=== PATIENT | female | born 1985 | race Caucasian/White ===

== ENCOUNTER 2017-02-12 18:10 | Emergency (ER) | payer MEDICAID, OTHER ==
[2017-02-12 18:32] VITALS: O2SAT 100
[2017-02-12] MEDS ORDERED: Tmp-Smz 800 mg-160 mg DS Tab PO STA (20:13)
[2017-02-12] MEDS ORDERED: Tmp-Smz 800 mg-160 mg DS Tab ONE (20:16)
--- NOTE | 2017-02-12 20:17 | C.PDOC ---
History Of Present Illness Patient is a 31 year old female who presents to the ER with a complaint of bilateral open wounds to her feet for the past 4 days. Patient states she has draining to her left heel wound. Denies any fever, weakness or numbness. Time Seen by Provider: 02/12/17 19:22 Chief Complaint (Nursing): Abnormal Skin Integrity History Per: Patient History/Exam Limitations: no limitations Onset/Duration Of Symptoms: Days (4) Current Symptoms Are (Timing): Still Present Location Of Injury: Right: Foot (open wound), Left: Foot Quality Of Symptoms: Draining (Left heel) Past Medical History Reviewed: Historical Data, Nursing Documentation, Vital Signs Vital Signs: Last Vital Signs Temp 98.5 F 02/12/17 20:35 Pulse 94 H 02/12/17 20:35 Resp 16 02/12/17 20:35 BP 112/80 02/12/17 20:35 Pulse Ox 100 02/13/17 05:24 - [facility] Procedures ASPIRAT CURET-POST DELIV (11/08/13) MONITORING NOS (12/25/14) MANUAL ASSIST DELIV NEC (12/25/14) Family History: States: Unknown Family Hx - Social History Hx Tobacco Use: No Hx Alcohol Use: No Hx Substance Use: No - Immunization History Hx Tetanus Toxoid Vaccination: No Hx Influenza Vaccination: Yes Hx Pneumococcal Vaccination: No Review Of Systems Except As Marked, All Systems Reviewed And Found Negative. Constitutional: Negative for: Fever, Chills Musculoskeletal: Positive for: Foot Pain (Bilateral open wounds) Neurological: Negative for: Weakness, Numbness Physical Exam - Physical Exam Appears: Well, Non-toxic Skin: Normal Color, Warm, Dry Head: Normacephalic Eye(s): bilateral: Normal Inspection, PERRL Oral Mucosa: Moist Extremity: Normal ROM, No Deformity, No Swelling, Other (dry open erythematous wound, non draining, non fluctuantto left heel and right foot dorsal aspect.) Extremity: Bilateral: Normal Color And Temperature, Normal ROM Pulses: Left Dorsalis Pedis: Normal, Right Dorsalis Pedis: Normal Neurological/Psych: Oriented x3, Normal Speech, Normal Motor, Normal Sensation ED Course And Treatment O2 Sat by Pulse Oximetry: 100 (Room air) Pulse Ox Interpretation: Normal Progress Note: Keflex PO and bactrim PO administered. Advised wound check in 2 days in clinic Disposition Counseled Patient/Family Regarding: Diagnosis, Need For Followup, Rx Given - Disposition Referrals: [facility] [Outside] Disposition: HOME/ ROUTINE Disposition Time: 20:14 Condition: STABLE Additional Instructions: Please follow up in clinic Keep wound clean Apply bacitracin oint Return to ER if worse Prescriptions: Sulfamethoxazole/Trimethoprim [Bactrim DS 800 mg-160 mg] 1 tab PO BID #14 tab Mupirocin 2% Ointment [Bactroban Ointment] 1 appl TP BID #1 tube Cephalexin [cephalexin] 500 mg PO QID #28 cap Instructions: Wound Infection (ED) Print Language: ECUADOREAN - Clinical Impression Clinical Impression: Infected open wound - Scribe Statement The provider has reviewed the documentation as recorded by the Scribernie Macias All medical record entries made by the Stefaniaibernie were at my direction and personally dictated by me. I have reviewed the chart and agree that the record accurately reflects my personal performance of the history, physical exam, medical decision making, and the department course for this patient. I have also personally directed, reviewed, and agree with the discharge instructions and disposition.
[2017-02-12 20:36] VITALS: BP 112/80; PULSE 94; RESP 16; TEMP 98.5
== END 2017-02-12 20:36 | disposition home or self-care (01) ==
LOC: C.ER 18:10
DX: S91.302A Unspecified open wound, left foot, initial encounter (principal); S91.301A Unspecified open wound, right foot, initial encounter; L08.9 Local infection of the skin and subcutaneous tissue, unspecified; X58.XXXA Exposure to other specified factors, initial encounter

== ENCOUNTER 2017-12-05 07:59 | Emergency (ER) | payer MEDICAID ==
[2017-12-05 08:06] VITALS: O2SAT 100
[2017-12-05 08:57] LABS: BASO % 0.5 % (0.0-2.0); EOS # 0.1 K/uL (0.0-0.7); EOS % 0.7 % (0.0-4.0); HEMOGLOBIN 12.8 g/dL (11.0-16.0); LYMPH # 2.2 K/uL (1.0-4.3); LYMPH % 27.1 % (20.0-40.0); MEAN CORPUSCULAR HEMOGLOBIN 29.8 pg (27.0-31.0); MEAN CORPUSCULAR HGB CONC 34.9 g/dL (33.0-37.0); MEAN PLATELET VOLUME 8.1 fL (7.2-11.7); MONO # 0.4 K/uL (0.0-0.8); MONO % 5.1 % (0.0-10.0); NEUT # 5.5 K/uL (1.8-7.0); NEUT % 66.6 % (50.0-75.0); RBC 4.28 Mil/uL (3.80-5.20); RED CELL DISTRIBUTION WIDTH 13.6 % (11.5-14.5); WHITE BLOOD COUNT 8.3 K/uL (4.8-10.8)
[2017-12-05 08:58] LABS: MEAN CELL VOLUME 85.4 fL (81.0-99.0)
[2017-12-05 09:03] LABS: HCG,QUALITATIVE URINE POSITIVE (NEGATIVE)
[2017-12-05 09:10] LABS: SQUAMOUS EPITHIAL 6 /hpf (0-5); URINE AMORPHOUS SEDIMENT RARE /ul (<OCC); URINE BACTERIA RARE (<OCC)
[2017-12-05 09:12] LABS: PH,URINE 6.5 (5.0-8.0); URINE BILIRUBIN NEGATIVE (NEGATIVE); URINE BLOOD LARGE (NEGATIVE); URINE CLARITY Hazy (Clear); URINE COLOR YELLOW (YELLOW); URINE GLUCOSE (UA) NEGATIVE (Normal); URINE LEUKOCYTE ESTERASE MODERATE Leu/uL (Negative); URINE NITRATE NEGATIVE (NEGATIVE); URINE PROTEIN NEGATIVE (NEGATIVE); URINE UROBILINOGEN 0.2 mg/dL (0.2-1.0)
[2017-12-05 09:30] LABS: ALB/GLOB RATIO 1.2 (1.0-2.1); ALBUMIN 4.4 g/dL (3.5-5.0); ALT/SGPT 18 U/L (9-52); AST/SGOT 14 U/L (14-36); BLOOD UREA NITROGEN 9 mg/dL (7-17); CALCIUM 9.8 mg/dl (8.6-10.4); GFR AFRICAN-AMERICAN > 60; GFR NON-AFRICAN AMERICAN > 60
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
--- NOTE | 2017-12-05 10:08 | US ---
Pelvic ultrasound History: Vaginal bleeding. Comparison: None available. Technique: Real-time sonography was performed through the pelvis. Findings: Uterus: 10.6 x 5.3 x 5.9 centimeters. Anteverted. Intrauterine gestational sac measuring 1.85 centimeters corresponding to a gestational age of 6 weeks and 2 days. Yolk sac identified measuring 2 millimeters. [place]-rump length measures 2.5 millimeters corresponding to a gestational age of 5 weeks 6 days. heart rate of 101 beats per minute. No free fluid in the pelvic cul-de-sac. Heterogeneous cervix measuring up to 3.4 centimeters. Right ovary: 3.6 x 2.4 x 3.5 centimeters. Normal flow. Probable heterogeneous corpus luteal cyst measuring 2.1 x 1.7 x 1.9 centimeters. Left ovary: 2.8 x 1.0 x 2.3 centimeters. Normal flow. Impression: Intrauterine corresponding to a gestational age of 5 weeks and 6 days with crown-rump length of 2.5 millimeters. heart rate of 101 beats per minute. Probable 2.1 centimeter right ovarian corpus luteal cyst. Limited 1st trimester ultrasound for viability purposes only. Continued interval followup with serial ultrasound, serial HCG levels, and gynecological consultation would be helpful if clinically indicated.
[2017-12-05 10:39] VITALS: BP 108/71; PULSE 90; RESP 18; TEMP 98.7
== END 2017-12-05 10:39 | disposition home or self-care (01) ==
LOC: C.ER 07:59
DX: O20.0 Threatened abortion (principal); Z3A.01 Less than 8 weeks gestation of pregnancy

== ENCOUNTER 2018-02-28 22:46 | Emergency (ER) | payer MEDICAID, OTHER ==
[2018-02-28 23:24] LABS: SQUAMOUS EPITHIAL 6 /hpf (0-5); URINE BACTERIA RARE (<OCC); URINE BILIRUBIN NEGATIVE (NEGATIVE); URINE BLOOD 1+ (NEGATIVE); URINE CLARITY Hazy (Clear); URINE COLOR Yellow (YELLOW); URINE GLUCOSE (UA) NORMAL (Normal); URINE LEUKOCYTE ESTERASE 3+ Leu/uL (Negative); URINE PROTEIN 1+ mg/dL (NEGATIVE); URINE UROBILINOGEN NORMAL mg/dL (0.2-1.0)
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
[2018-03-01 01:09] VITALS: BP 113/69; PULSE 89; RESP 20; TEMP 98.8; O2SAT 99
== END 2018-03-01 01:10 | disposition home or self-care (01) ==
LOC: C.ER 22:46
DX: O23.42 Unspecified infection of urinary tract in pregnancy, second trimester (principal); Z3A.17 17 weeks gestation of pregnancy; O9A.212 Injury, poisoning and certain other consequences of external causes complicating pregnancy, second trimester; V89.0XXA Person injured in unspecified motor-vehicle accident, nontraffic, initial encounter

== ENCOUNTER 2018-04-25 18:08 | Emergency (ER) | payer OTHER ==
[2018-04-25 19:03] LABS: SQUAMOUS EPITHIAL 8 /hpf (0-5); URINE BILIRUBIN NEGATIVE (NEGATIVE); URINE BLOOD 2+ (NEGATIVE); URINE CLARITY Hazy (Clear); URINE COLOR Yellow (YELLOW); URINE GLUCOSE (UA) NORMAL (Normal); URINE LEUKOCYTE ESTERASE 3+ Leu/uL (Negative); URINE PROTEIN 2+ mg/dL (NEGATIVE); URINE UROBILINOGEN NORMAL mg/dL (0.2-1.0)
[2018-04-26 01:02] VITALS: BP 120/83; PULSE 90; RESP 18; TEMP 99; O2SAT 97
== END 2018-04-25 20:45 | disposition home or self-care (01) ==
LOC: C.EROB 18:08
DX: O23.42 Unspecified infection of urinary tract in pregnancy, second trimester (principal); Z3A.27 27 weeks gestation of pregnancy